=== PATIENT | female | born 1995 | race Caucasian/White ===

== ENCOUNTER → 2021-04-15 | Outpatient (CLI) | payer OTHER | END | disposition home or self-care (01) | LOC: LAB 08:33 | PROVIDERS: ATTEND Obstetrics & Gynecology | DX: Z34.90 Encounter for supervision of normal pregnancy, unspecified, unspecified trimester (principal) | CPT/HCPCS: 36415; 82950; 85014; 85018; 86592 ==

== ENCOUNTER 2021-06-27 21:54 | Outpatient (CLI) | payer OTHER ==
[~2021-06-27] VITALS: Ht 172.7 cm; Wt 80.0 kg
[2021-06-27 22:32] VITALS: BP 113/67
== END 2021-06-27 23:59 | disposition home or self-care (01) ==
LOC: LDOP 21:54
PROVIDERS: ATTEND Obstetrics & Gynecology
DX: O26.893 Other specified pregnancy related conditions, third trimester (principal); R10.9 Unspecified abdominal pain; Z3A.36 36 weeks gestation of pregnancy

== ENCOUNTER 2021-07-18 06:41 | Inpatient (IN) | payer OTHER ==
[~2021-07-18] VITALS: Ht 174 cm; Wt 78.2 kg
[2021-07-18] MEDS ORDERED: OXYTOCIN 30U/ 0.9% NaCL 500ML 500 ML ONE (07:46)
[2021-07-18] MEDS ORDERED: MISOPROSTOL 200 MCG TABLET ONE (07:46)
[2021-07-18] MEDS ORDERED: LIDOCAINE 1%, 20ML ONE (07:46)
[2021-07-18] MEDS ORDERED: NEWBORN KIT ONE (07:46)
[2021-07-18] MEDS ORDERED: D5%-LACTATED RINGERS 1,000 ML IV SCH (08:00)
[2021-07-18] MEDS ORDERED: OXYTOCIN 30U/ 0.9% NaCL 500ML 500 ML IV PRN (08:00)
[2021-07-18] MEDS ORDERED: FENTANYL PF 100 MCG/2ML IVPush PRN (08:00)
[2021-07-18] MEDS ORDERED: CALCIUM CARBONATE 500 MG TAB.CHEW PO PRN (08:00)
[2021-07-18] MEDS ORDERED: TERBUTALINE 1 MG/ML, 1ML IVPush PRN (08:00)
[2021-07-18] MEDS ORDERED: PLEASE ENTER HEIGHT AND WEIGHT MC SCH (08:00)
[2021-07-18] MEDS ORDERED: ONDANSETRON 2MG/ML, 2ML IVPush PRN (08:00)
[2021-07-18] MEDS ORDERED: OXYTOCIN 30U/ 0.9% NaCL 500ML 500 ML IV ONE (08:00)
[2021-07-18] MEDS ORDERED: PLEASE ENTER ALLERGIES MC SCH (08:00)
[2021-07-18] MEDS ORDERED: TERBUTALINE 1 MG/ML, 1ML SQ PRN (08:00)
[2021-07-18] MEDS: LACTATED RINGERS 1,000 ML IV SCH ×2 (08:07→12:05)
[2021-07-18 08:41] VITALS: BP 101/69
[2021-07-18 08:47] LABS: BASOPHILS % (AUTO) 0 % (0-1); EOSINOPHILS % (AUTO) 1 % (1-7); LYMPHOCYTES % (AUTO) 26 % (22-44); MEAN CORPUSCULAR HEMOGLOBIN 32.4 pg (27.0-34.8); MEAN CORPUSCULAR HGB CONC 35.4 g/dL (32.4-35.8); MEAN PLATELET VOLUME 7.6 fL (7.4-10.4); MONOCYTES % (AUTO) 9 % (2-9); NEUTROPHILS % (AUTO) 64 % (42-75); PLATELET COUNT 205 x10^3/uL (130-400); RED BLOOD COUNT 3.65 x10^6/uL (3.82-5.3); RED CELL DISTRIBUTION WIDTH 13.3 % (9.6-15.2)
[2021-07-18] MEDS ORDERED: LACTATED RINGERS 1,000 ML IVBOLUS PRN (09:30)
[2021-07-18] MEDS ORDERED: LACTATED RINGERS 1,000 ML IV SCH (09:30)
[2021-07-18] MEDS ORDERED: NALOXONE 0.4 MG/ML, 1ML IVPush PRN (09:30)
[2021-07-18] MEDS ORDERED: FENTANYL/BUPIV./NS/PF 250 ML EPIDCONT SCH (09:30)
[2021-07-18] MEDS ORDERED: EPHEDRINE 50 MG/ML, 1ML IVPush PRN (09:30)
[2021-07-18] MEDS ORDERED: LIDOCAINE/PF 1.5% EPI 1:200K, 10 ML ONE (09:56)
[2021-07-18] MEDS ORDERED: BUPIVACAINE 0.25% ONE (09:56)
[2021-07-18] MEDS ORDERED: IBUPROFEN 600 MG TABLET ONE (13:06)
[2021-07-18] MEDS ORDERED: ACETAMINOPHEN 325 MG TABLET PO PRN (13:30)
[2021-07-18] MEDS ORDERED: HYDROcodone/APAP 5/325 TABLET PO PRN ×2 (13:30)
[2021-07-18] MEDS ORDERED: MISOPROSTOL 200 MCG TABLET PR PRN (13:30)
[2021-07-18] MEDS ORDERED: IBUPROFEN 600 MG TABLET PO PRN (13:30)
[2021-07-18] MEDS ORDERED: DOCUSATE 100 MG CAPSULE PO PRN (13:30)
[2021-07-18] MEDS ORDERED: ONDANSETRON 2MG/ML, 2ML IV PRN (13:30)
[2021-07-18] MEDS ORDERED: METOCLOPRAMIDE 5 MG/ML, 2ML IV PRN (13:30)
[2021-07-18] MEDS ORDERED: SIMETHICONE 80 MG CHEW TAB PO PRN (13:30)
[2021-07-18] MEDS ORDERED: BISACODYL 10 MG SUPP PR PRN (13:30)
[2021-07-18] MEDS ORDERED: OXYTOCIN 30U/ 0.9% NaCL 500ML 500 ML IV SCH (13:30)
[2021-07-18 15:00] VITALS: BP 106/66
[2021-07-18 20:00] VITALS: BP 99/58
[2021-07-18 21:11] LABS: BASOPHILS % (AUTO) 0 % (0-1); EOSINOPHILS % (AUTO) 0 % (1-7); LYMPHOCYTES % (AUTO) 18 % (22-44); MEAN CORPUSCULAR HEMOGLOBIN 31.7 pg (27.0-34.8); MEAN CORPUSCULAR HGB CONC 34.9 g/dL (32.4-35.8); MEAN PLATELET VOLUME 7.5 fL (7.4-10.4); MONOCYTES % (AUTO) 7 % (2-9); NEUTROPHILS % (AUTO) 74 % (42-75); PLATELET COUNT 198 x10^3/uL (130-400); RED BLOOD COUNT 3.85 x10^6/uL (3.82-5.3); RED CELL DISTRIBUTION WIDTH 13.5 % (9.6-15.2)
[2021-07-19 00:02] VITALS: BP 96/55
[2021-07-19 04:00] VITALS: BP 98/56
[2021-07-19 08:50] VITALS: BP 95/64
[2021-07-19] MEDS ORDERED: PRENATAL VIT/IRON/FA 1 EACH TABLET PO SCH (09:00)
[2021-07-19] MEDS ORDERED: IBUP-1223 PO (12:41)
== END 2021-07-19 14:37 | disposition home or self-care (01) | DRG 805 ==
LOC: LDOP 06:41 → LDIP 07:59 → 2NW 14:51
PROVIDERS: ADMIT Obstetrics & Gynecology; ATTEND Obstetrics & Gynecology
PROC: 10E0XZZ Delivery of Products of Conception, External Approach (ICD-10-PCS; principal; 2021-07-18)
PROC: 3E033VJ Introduction of Other Hormone into Peripheral Vein, Percutaneous Approach (ICD-10-PCS; 2021-07-18)
PROC: 0HQ9XZZ Repair Perineum Skin, External Approach (ICD-10-PCS; 2021-07-18)
PROC: 3E0R3BZ Introduction of Anesthetic Agent into Spinal Canal, Percutaneous Approach (ICD-10-PCS; 2021-07-18)
PROC: 00HU33Z Insertion of Infusion Device into Spinal Canal, Percutaneous Approach (ICD-10-PCS; 2021-07-18)
DX: O98.52 Other viral diseases complicating childbirth (principal); U07.1 COVID-19; Z37.0 Single live birth; O70.0 First degree perineal laceration during delivery; Z3A.39 39 weeks gestation of pregnancy
CPT/HCPCS: 36415; 85025; 86592; 86850; 86900; 87635; G0378; J2590; J7120